=== PATIENT | male | born 1995 | race American Indian/Alaskan Native ===

== ENCOUNTER 2019-04-16 19:43 | Emergency (ER) | payer OTHER ==
[~2019-04-16] VITALS: Ht 190.5 cm; Wt 127.0 kg
[~2019-04-16 19:43] MED LIST: CODACE30 PO; HYDACE5 PO; LEVOTHYROXIN; MULTCH; RXHYDACE PO; RXONDA4ODT MM
[2019-04-16] MEDS ORDERED: LEVSOD50 PO (21:24)
== END 2019-04-16 22:11 | disposition home or self-care (01) ==
LOC: ER 19:43
DX: S68.121A Partial traumatic metacarpophalangeal amputation of left index finger, initial encounter (principal); E03.9 Hypothyroidism, unspecified; W31.2XXA Contact with powered woodworking and forming machines, initial encounter
CPT/HCPCS: 73140; 90471; 90714; 99283-25

== ENCOUNTER 2019-09-21 13:49 | Day surgery (SDC) | payer OTHER ==
[~2019-09-21] VITALS: Ht 190.5 cm; Wt 150.0 kg
[~2019-09-21 13:49] MED LIST changes: +LEVSOD50 PO
== END 2019-09-21 15:10 | disposition home or self-care (01) ==
LOC: ORSCSDS 13:49
PROVIDERS: Internal Medicine Gastroenterology
PROC: 0DJD8ZZ Inspection of Lower Intestinal Tract, Via Natural or Artificial Opening Endoscopic (ICD-10-PCS; principal; 2019-09-21 15:00)
DX: Z80.0 Family history of malignant neoplasm of digestive organs (principal); E03.9 Hypothyroidism, unspecified; Z79.899 Other long term (current) drug therapy; E66.9 Obesity, unspecified; Z68.41 Body mass index [BMI] 40.0-44.9, adult
CPT/HCPCS: J2250; J2704; J7120